=== PATIENT | female | born 1965 | race Caucasian/White ===

== ENCOUNTER 2018-02-03 12:15 | Outpatient (REF) | payer MEDICARE, MEDICAID, SELFPAY ==
[2018-02-03 22:02] LABS: Absolute Basophil Count 0.04 k/cumm (0.0-0.2); Absolute Eosinophil Count 0.21 k/cumm (0.0-0.7); Absolute Lymphocyte Count 1.36 k/cumm (1.2-3.4); Absolute Monocyte Count 0.39 k/cumm (0.11-0.7); Absolute Neutrophil Count 2.85 k/cumm (1.2-6.7); Basophils % 0.8; Eosinophils % 4.3; HGB 14.4 g/dL (12.0-15.5); Mean Corp. HGB Concentration 32.7 g/dL (32.0-36.0); Mean Corpuscular Hemoglobin 30.3 pg (27.0-33.0); Mean Corpuscular Volume 92.6 fL (80-95); Mean Platelet Volume 11.5 fL (8.0-11.0); Neutrophils % 58.9; Platelet Count 240 x1000/uL (130-400); RBC 4.75 m/cumm (4.00-5.20); RBC Distribution Width 14.6 % (11.7-14.6); White Blood Cell Count 4.85 k/cumm (4.4-10.8)
[2018-02-03 22:17] LABS: ALT 60 U/L (12-78); AST 52 U/L (15-37); Albumin 3.9 g/dL (3.4-5.0); Alkaline Phosphatase 192 U/L (46-116); Anion Gap 6.2 mmol/L (3-11); BUN 7 mg/dL (7-18); Bilirubin, Total 0.4 mg/dL (0.2-1.0); CO2 32.8 mmol/L (21.0-32.0); Calcium 9.7 mg/dL (8.5-10.1); Chloride 103 mmol/L (98-107); Cholesterol 298 mg/dL (50-200); Glucose 62 mg/dL (70-100); HDL Cholesterol 106 mg/dL (40-60); LDL CHOLESTEROL 168 mg/dL (<100); Potassium 4.2 mmol/L (3.5-5.1); Sodium 142 mmol/L (136-145); TSH (W/Ref FT4) 3.49 uIU/mL (0.358-3.74); Total Protein 7.5 g/dL (6.4-8.2); Triglyceride 119 mg/dL (30-150)
[2018-02-03 22:56] LABS: ESR 19 MM/HR (0-30)
== END 2018-02-03 12:35 ==
LOC: NCHCN 12:15
PROVIDERS: Visit Provider Family Medicine
DX: R07.89 Other chest pain (principal); M34.9 Systemic sclerosis, unspecified
CPT/HCPCS: 80053; 80061; 83721; 85652; 84443; 85025

== ENCOUNTER 2019-05-28 14:36 | Outpatient (REF) | payer MEDICARE, MEDICAID, SELFPAY ==
[2019-05-28 20:48] LABS: ALT 68 U/L (14-59); AST 48 U/L (15-37); Alkaline Phosphatase 340 U/L (46-116); Bilirubin, Direct 0.12 mg/dL (0.00-0.20); Bilirubin, Total 0.3 mg/dL (0.2-1.0); Total Protein 7.6 g/dL (6.4-8.2)
[2019-05-28 21:09] LABS: Vitamin D 25 Total 26.6 ng/ml (30-100)
== END 2019-05-28 14:56 ==
LOC: NCHCN 14:36
PROVIDERS: PCP Internal Medicine; Visit Provider Internal Medicine
DX: R94.5 Abnormal results of liver function studies (principal); E55.9 Vitamin D deficiency, unspecified
CPT/HCPCS: 80076; 82306

== ENCOUNTER 2019-06-05 14:40 | Outpatient (REF) | payer MEDICARE, MEDICAID, SELFPAY ==
[2019-06-05 21:15] LABS: Absolute Basophil Count 0.03 k/cumm (0.0-0.2); Absolute Eosinophil Count 0.15 k/cumm (0.0-0.7); Absolute Lymphocyte Count 1.35 k/cumm (1.2-3.4); Absolute Monocyte Count 0.38 k/cumm (0.11-0.7); Absolute Neutrophil Count 3.64 k/cumm (1.2-6.7); Basophils % 0.5; Eosinophils % 2.7; HCT 40.5 % (36.0-46.0); Lymphocytes % 24.3; Mean Corp. HGB Concentration 32.1 g/dL (32.0-36.0); Mean Corpuscular Hemoglobin 29.6 pg (27.0-33.0); Mean Corpuscular Volume 92.3 fL (80-95); Monocytes % 6.8; Neutrophils % 65.7; Platelet Count 278 x1000/uL (130-400); RBC 4.39 m/cumm (4.00-5.20); RBC Distribution Width 14.7 % (11.7-14.6); White Blood Cell Count 5.55 k/cumm (4.4-10.8)
[2019-06-05 21:54] LABS: ALT 60 U/L (14-59); AST 47 U/L (15-37); Albumin 3.8 g/dL (3.4-5.0); Alkaline Phosphatase 293 U/L (46-116); Bilirubin, Direct 0.13 mg/dL (0.00-0.20); Bilirubin, Total 0.5 mg/dL (0.2-1.0); Total Protein 7.2 g/dL (6.4-8.2)
[2019-06-05 22:01] LABS: GGT 234 U/L (5-55)
[2019-06-07 09:10] LABS: HBs Antibody, Quant <3.1 mIU/mL (See Note); Hepatitis B Surface Ab Negative (See Note); Hepatitis B Surface Ag Negative (Negative)
[2019-06-07 10:03] LABS: Hepatitis C Ab w Rflx HCV PCR Reactive (Negative)
[2019-06-11 15:07] LABS: ANA Interpretation Positive (Negative); ANA Titer Pattern 1:80 Speckled
[2019-06-11 15:12] LABS: HCV RNA Qualitative Undetected (Undetected)
[2019-06-11 15:14] LABS: Smooth Muscle Ab Screen Negative (Negative)
== END 2019-06-05 15:00 ==
LOC: NCHCN 14:40
PROVIDERS: PCP Internal Medicine; Visit Provider Internal Medicine
DX: R74.8 Abnormal levels of other serum enzymes (principal); R94.5 Abnormal results of liver function studies; Z11.59 Encounter for screening for other viral diseases; Z01.84 Encounter for antibody response examination; R07.89 Other chest pain; R60.9 Edema, unspecified; M75.120 Complete rotator cuff tear or rupture of unspecified shoulder, not specified as traumatic
CPT/HCPCS: 80076; 83516; 86706; 86803; 87340; 87522; 82977; 85025; 86038; 86255

== ENCOUNTER 2020-01-15 13:20 | Outpatient (REF) | payer MEDICARE, MEDICAID, SELFPAY ==
[2020-01-18 15:56] LABS: COVID-19 RT-PCR Result NEGATIVE (Negative)
== END 2020-01-15 13:40 ==
LOC: NCHCN 13:20
PROVIDERS: PCP Internal Medicine; Visit Provider Internal Medicine
DX: J06.9 Acute upper respiratory infection, unspecified (principal)
CPT/HCPCS: U0003

== ENCOUNTER 2020-02-20 22:15 | Outpatient (REF) | payer MEDICARE, MEDICAID, SELFPAY ==
[2020-02-20 22:29] LABS: ALT 55 U/L (14-59); AST 39 U/L (15-37); Alkaline Phosphatase 254 U/L (46-116); Anion Gap 8.2 mmol/L (3-11); BUN 12 mg/dL (7-18); Bilirubin, Total 0.4 mg/dL (0.2-1.0); CO2 30.8 mmol/L (21.0-32.0); CREATININE 0.76 mg/dL (0.55-1.02); Calcium 9.6 mg/dL (8.5-10.1); Chloride 100 mmol/L (98-107); Glucose 85 mg/dL (74-106); Potassium 4.2 mmol/L (3.5-5.1); Sodium 139 mmol/L (136-145); Total Protein 7.8 g/dL (6.4-8.2)
[2020-02-22 16:18] LABS: HBs Antibody, Quant <3.1 mIU/mL (See Note); Hepatitis B Surface Ab Negative (See Note)
[2020-02-25 11:41] LABS: Hep A Total Ab w Rflx IgM Negative (Negative)
== END 2020-02-20 22:35 ==
LOC: NCHCN 22:15
PROVIDERS: PCP Internal Medicine; Visit Provider Internal Medicine
DX: K74.3 Primary biliary cirrhosis (principal); Z11.59 Encounter for screening for other viral diseases
CPT/HCPCS: 80053; 86706; 86709

== ENCOUNTER 2020-07-23 21:13 | Outpatient (REF) | payer MEDICARE, MEDICAID, SELFPAY ==
[2020-07-23 22:07] LABS: ALT 80 U/L (14-59); AST 83 U/L (15-37); Albumin 3.8 g/dL (3.4-5.0); Alkaline Phosphatase 377 U/L (46-116); Anion Gap 5.4 mmol/L (3-11); BUN 8 mg/dL (7-18); Bilirubin, Total 0.4 mg/dL (0.2-1.0); CO2 32.6 mmol/L (21.0-32.0); CREATININE 0.7 mg/dL (0.55-1.02); Calcium 9.8 mg/dL (8.5-10.1); Chloride 103 mmol/L (98-107); Glucose 107 mg/dL (74-106); Potassium 4.3 mmol/L (3.5-5.1); Sodium 141 mmol/L (136-145); Total Protein 7.3 g/dL (6.4-8.2)
[2020-07-23 22:08] LABS: Abs Immature Grans 0.01 10^3/uL (0.0-0.06); Absolute Basophil Count 0.06 10^3/uL (0.0-0.2); Absolute Eosinophil Count 0.11 10^3/uL (0.0-0.7); Absolute Lymphocyte Count 1.89 10^3/uL (1.2-3.4); Absolute Monocyte Count 0.41 10^3/uL (0.1-0.8); Eosinophils % 1.8; HCT 43.5 % (36.0-46.0); HGB 13.9 g/dL (11.2-15.7); Immature Grans % 0.2; Lymphocytes % 30.1; MCH 28.1 pg (27.0-33.0); MCV 88.1 fL (80-95); MPV 11.7 fL (8.0-11.0); Monocytes % 6.5; Neutrophils % 60.4; Nucleated RBC 0 %; Platelet Count 225 10^3/uL (130-400); RBC 4.94 10^6/uL (3.93-5.22); RDW 16.9 % (11.7-14.6); RDW-SD 54.1 fL; WBC 6.28 10^3/uL (4.4-10.8)
== END 2020-07-23 21:14 | disposition home or self-care (01) ==
LOC: NCHCN 21:13
PROVIDERS: PCP Internal Medicine; Visit Provider Nurse Practitioner Family
DX: R10.32 Left lower quadrant pain (principal); I73.00 Raynaud's syndrome without gangrene
CPT/HCPCS: 80053; 85025

== ENCOUNTER 2021-03-20 16:47 | Outpatient (REF) | payer MEDICARE, MEDICAID, SELFPAY ==
[2021-03-20 21:03] LABS: HCT 39.8 % (36.0-46.0); HGB 12.3 g/dL (11.2-15.7); MCH 28.7 pg (27.0-33.0); MCHC 30.9 % (32.0-36.0); MCV 92.8 fL (80-95); MPV 12.9 fL (8.0-11.0); Platelet Count 212 10^3/uL (130-400); RBC 4.29 10^6/uL (3.93-5.22); RDW 14.9 % (11.7-14.6); RDW-SD 50.8 fL; WBC 5.51 10^3/uL (4.4-10.8)
[2021-03-20 21:52] LABS: ALT 76 U/L (14-59); AST 52 U/L (15-37); Albumin 3.7 g/dL (3.4-5.0); Alkaline Phosphatase 566 U/L (46-116); Anion Gap 8.7 mmol/L (3-11); BUN 9 mg/dL (7-18); Bilirubin, Total 0.3 mg/dL (0.2-1.0); CO2 29.3 mmol/L (21.0-32.0); CREATININE 0.7 mg/dL (0.55-1.02); Calcium 9.1 mg/dL (8.5-10.1); Chloride 104 mmol/L (98-107); Glucose 90 mg/dL (74-106); Potassium 3.7 mmol/L (3.5-5.1); Sodium 142 mmol/L (136-145); TSH (W/Ref FT4) 2.86 uIU/mL (0.36-3.74); Total Protein 7.3 g/dL (6.4-8.2)
[2021-03-24 09:21] LABS: Lyme Ab w Rflx to Lyme Confirm Negative (Negative)
== END 2021-03-20 16:48 | disposition home or self-care (01) ==
LOC: NCHCN 16:47
PROVIDERS: PCP Internal Medicine; Visit Provider Internal Medicine
DX: M35.00 Sjogren syndrome, unspecified (principal); I73.00 Raynaud's syndrome without gangrene; R53.83 Other fatigue
CPT/HCPCS: 80053; 80061; 85027; 84443; 86618

== ENCOUNTER 2022-06-07 21:10 | Outpatient (REF) | payer MEDICARE, MEDICAID, SELFPAY ==
--- OUTSIDE RECORDS SUMMARY | 2022-06-07 21:14 | XMS_ITS | CCD ---
Author Name Unknown Address [address] [place] [address] [phone] Organization Unknown Address [address] [place] [address] [id number] Care Team Providers Care Baggage And Mail Agent Name Role Phone TOREY KRAFT Attending Physician [phone] TASHIA HENDRICKS Er Physician [phone] SAMIR GODINEZ (Secondary) Physician [phone] BRADY Colón Registered Nurse [phone] Vital Signs Vital Sign Value Unit Date/Time Recent/Initial ? BMI (Body Mass Index) 18.46 kg/m^2 01/10/2022 15: 08 Initial VS Weight Measured 125 lbs 01/10/2022 15:08 Ini tial VS Height 69 in 01/10/2022 15:08 Initial VS BSA (Body Surface Area) 1.66 m^2 01/10/2022 1 5:08 Initial VS BP Systolic 102 mmHg 01/10/2022 15:08 Initial VS BP Diastolic 63 mmHg 01/10/2022 15:08 Initia l VS Respiratory Rate 16 bpm 01/10/2022 15:08 In itial VS Heart Rate 73 bpm 01/10/2022 15:08 Initial VS O2 % BldC Oximetry 99 % 01/10/2022 15:08 Initial VS Body Temperature 36.4 degrees 01/10/2022 15:08 In itial VS BP Systolic 95 mmHg 01/13/2022 07:30 Most Re cent VS BP Diastolic 59 mmHg 01/13/2022 07:30 Most R ecent VS Respiratory Rate 18 bpm 01/13/2022 07:[address] Recent VS Heart Rate 66 bpm 01/13/2022 07:30 Most Rec ent VS O2 % BldC Oximetry 99 % 01/13/2022 07:30 Most Recent VS Body Temperature 37.1 degrees 01/13/2022 07:[address] Recent VS Allergies Allergy Code Allergy Type Reaction Status TYLENOL 257404 Drug allergy LIVER ISSUES Active CODEINE 2670 Drug allergy Nausea; Vomiting Active ERYTHROMYCIN 4053 Drug allergy PLATELET ISSUES Activ e GLUTEN 0 Food allergy GI ISSUES Active LACTOSE 6211 Food allergy INTOLERANT Active NSAID 0 Drug allergy NAUSEA/VOMITING Active ASPIRIN 1191 Drug allergy PLATELET ISSUES Active Procedures Procedure Code Procedure Type Date Detachment at Right Index Fi nger, Mid, Open Approach [id number] ICD-10 PCS Excision of Right Hand, Open Approach, Diagnostic 0XBJ 0ZX ICD-10 PCS 01/10/2022 Drainage, Finger Abscess; Complicated 04252 CPT 01/12/2022 Anesthesia, Open/Surg Arthro scopic/Endoscopic Proc, Distal Radius/Distal Ulna/Wrist/Hand; NOS 32126 CPT 01/10/2022 History of Immunizations Unknown or Not Available. Problems Problem Code Start Date Resolved Date Status Sprain of right wrist, initi al encounter [id number] Active Auto-immune disorder 24004748 01/10/2022 Reso lved Arthritis 8762431 01/10/2022 Resolved Primary Sjogren's syndrome 284673488 Resolved Results BASIC METABOLIC PANEL (BMP) - Collect Date/Time: 01/11/2022 06:54 Test Name Code Test Result Test Units Test Ref Rang e GLUCOSE 2345-7 86 mg/dL L=70 H=116 BUN 3094-0 10 mg/dL L=6 H=25 CREATININE 2160-0 0.65 mg/dL L=0.51 H=0.95 SODIUM SERUM 2951-2 141 mmol/L L=136 H=145 POTASSIUM SERUM 2823-3 4.0 mmol/L L=3.4 H=5 .2 CHLORIDE SERUM 2075-0 105 mmol/L L=96 H=110 CARBON DIOXIDE (CO2) 2028-9 30 mmol/L L=22 H=34 ANION GAP 92606-2 6.3 mmol/L CALCIUM SERUM 29004-7 8.8 mg/dL L=8.2 H=10. 2 AGE 56 years eGFR (non-Afr.Amer.) 73874-3 95 mL/min eGFR (Afr-Ethiopian) 69056-4 115 mL/min BUN (UREA NITROGEN)* - Colle ct Date/Time: 01/11/2022 06:54 Test Name Code Test Result Test Units Test Ref Rang e BUN 3094-0 10 mg/dL L=6 H=25 C REACTIVE PROTEIN HIGH SENS ITIVITY* - Collect Date/Time: 01/11/2022 06:54 Test Name Code Test Result Test Units Test Ref Rang e CRP-HIGH SENS. 04075-4 4.27 mg/L L=0.00 H=3 .00 CRP-HIGH SENS 97512-9 0.43 mg/dL L=0.00 H=0. 30 C REACTIVE PROTEIN HIGH SENS ITIVITY* - Collect Date/Time: 01/10/2022 17:06 Test Name Code Test Result Test Units Test Ref Rang e CRP-HIGH SENS. 41117-3 4.68 mg/L L=0.00 H=3 .00 CRP-HIGH SENS 40153-8 0.47 mg/dL L=0.00 H=0. 30 COMPREHENSIVE METABOLIC PANE L (CMP) - Collect Date/Time: 01/10/2022 17:06 Test Name Code Test Result Test Units Test Ref Rang e GLUCOSE 2345-7 100 mg/dL L=70 H=116 BUN 3094-0 13 mg/dL L=6 H=25 CREATININE 2160-0 0.81 mg/dL L=0.51 H=0.95 SODIUM SERUM 2951-2 141 mmol/L L=136 H=145 POTASSIUM SERUM 2823-3 4.8 mmol/L L=3.4 H=5 .2 CHLORIDE SERUM 2075-0 105 mmol/L L=96 H=110 CARBON DIOXIDE (CO2) 2028-9 30 mmol/L L=22 H=34 ANION GAP 20957-5 6.4 mmol/L CALCIUM SERUM 20564-3 8.7 mg/dL L=8.2 H=10. 2 BILIRUBIN TOTAL 1975-2 0.4 mg/dL L=0.0 H=1 .3 ALK. PHOS. 6768-6 399 U/L L=46 H=116 SGOT (AST) 1920-8 50 U/L L=15 H=37 SGPT (ALT) 1742-6 59 U/L L=12 H=78 TOTAL PROTEIN 2885-2 7.7 gm/dL L=6.0 H=8.0 ALBUMIN 1751-7 3.5 gm/dL L=3.4 H=5.0 AGE 56 years eGFR (non-Afr.Amer.) 40350-4 73 mL/min eGFR (Afr-Ethiopian) 55031-4 89 mL/min CREATININE SERUM - Collect D ate/Time: 01/11/2022 06:54 Test Name Code Test Result Test Units Test Ref Rang e CREATININE 2160-0 0.65 mg/dL L=0.51 H=0.95 AGE 56 years eGFR (non-Afr.Amer.) 66096-0 95 mL/min eGFR (Afr-Ethiopian) 61766-8 115 mL/min VANCOMYCIN PEAK* - Collect D ate/Time: 01/11/2022 14:30 Test Name Code Test Result Test Units Test Ref Rang e VANCOMYCIN, PEAK 32.5 ug/mL CBC W/ DIFFERENTIAL* - Colle ct Date/Time: 01/11/2022 06:54 Test Name Code Test Result Test Units Test Ref Rang e WBC 6690-2 4.50 th/cmm L=5.00 H=10.00 NEUT % 46.5 % L=40.0 H=80.0 LYMPH % 42.2 % L=10.0 H=50.0 MONO % 04940-3 7.6 % L=2.0 H=12.0 EOS % 2.4 % L=0.0 H=8.0 BASO % 1.1 % L=0.0 H=3.0 IG % 2514-8 0.2 % L=0.0 H=1.1 NRBC % 74108-6 0.0 % L=0.0 H=0.0 NEUT abs count 751-8 2.1 th/cmm L=1.6 H=8. 4 LYMPH abs count 731-0 1.9 th/cmm L=1.5 H=4 .0 MONO abs count 742-7 0.3 th/cmm L=0.2 H=1. 0 EOS abs count 711-2 0.1 th/cmm L=0.0 H=0.5 BASO abs count 704-7 0.1 th/cmm L=0.0 H=0. 2 IG abs count 36997-8 0.0 th/cmm L=0.0 H=0.1 NRBC abs count 09803-2 0.0 mil/cmm L=0.0 H=0. 0 RBC 789-8 4.46 mil/cmm L=3.90 H=5.40 HEMOGLOBIN 718-7 13.2 gm/dL L=12.0 H=16.0 HEMATOCRIT 4544-3 40 % L=37 H=47 MCV 787-2 90 fL L=82 H=92 MCH 785-6 29.6 pg L=27.0 H=31.0 MCHC 786-4 32.8 % L=32.0 H=36.0 RDW-SD 788-0 49.8 fL L=39.0 H=49.0 PLATELET COUNT 777-3 202 th/cmm L=150 H=45 0 CBC W/ DIFFERENTIAL* - [facility] ct Date/Time: 01/10/2022 17:06 Test Name Code Test Result Test Units Test Ref Rang e WBC 6690-2 5.89 th/cmm L=5.00 H=10.00 NEUT % 60.0 % L=40.0 H=80.0 LYMPH % 30.2 % L=10.0 H=50.0 MONO % 27936-7 7.3 % L=2.0 H=12.0 EOS % 1.4 % L=0.0 H=8.0 BASO % 0.8 % L=0.0 H=3.0 IG % 2514-8 0.3 % L=0.0 H=1.1 NRBC % 15483-7 0.0 % L=0.0 H=0.0 NEUT abs count 751-8 3.5 th/cmm L=1.6 H=8. 4 LYMPH abs count 731-0 1.8 th/cmm L=1.5 H=4 .0 MONO abs count 742-7 0.4 th/cmm L=0.2 H=1. 0 EOS abs count 711-2 0.1 th/cmm L=0.0 H=0.5 BASO abs count 704-7 0.1 th/cmm L=0.0 H=0. 2 IG abs count 46640-7 0.0 th/cmm L=0.0 H=0.1 NRBC abs count 77236-0 0.0 mil/cmm L=0.0 H=0. 0 RBC 789-8 4.60 mil/cmm L=3.90 H=5.40 HEMOGLOBIN 718-7 13.4 gm/dL L=12.0 H=16.0 HEMATOCRIT 4544-3 41 % L=37 H=47 MCV 787-2 90 fL L=82 H=92 MCH 785-6 29.1 pg L=27.0 H=31.0 MCHC 786-4 32.4 % L=32.0 H=36.0 RDW-SD 788-0 50.2 fL L=39.0 H=49.0 PLATELET COUNT 777-3 206 th/cmm L=150 H=45 0 SED RATE* - Collect Date/Manish e: 01/11/2022 06:54 Test Name Code Test Result Test Units Test Ref Rang e SED. RATE 4537-7 38 mm/hr L=0 H=30 SED RATE* - Collect Date/Manish e: 01/10/2022 17:06 Test Name Code Test Result Test Units Test Ref Rang e SED. RATE 4537-7 30 mm/hr L=0 H=30 KAMI COVID RHEONIX* - Link ect Date/Time: 01/10/2022 17:11 Test Name Code Test Result Test Units Test Ref Rang e [facility]- 58964-8 INPATIENT/ED N/A SARS COV2 RNA: 71483-1 NEGATIVE N/A REFERENCE RANGE: NEGAT GRAM STAIN* - Collect Date/T [place]: 01/12/2022 16:38 Test Name Code Test Result Test Units Test Ref Rang e SOURCE- Other N/A WBC s none seen N/A PREDOMINANT ORGANISM No bacteria seen N/A GRAM STAIN* - Collect Date/T [place]: 01/12/2022 16:38 Test Name Code Test Result Test Units Test Ref Rang e SOURCE- Other N/A WBC s none seen N/A PREDOMINANT ORGANISM No bacteria seen N/A GRAM STAIN* - Collect Date/T [place]: 01/12/2022 16:38 Test Name Code Test Result Test Units Test Ref Rang e SOURCE- Other N/A WBC s none seen N/A PREDOMINANT ORGANISM No bacteria seen N/A GRAM STAIN* - Collect Date/T [place]: 01/10/2022 18:30 Test Name Code Test Result Test Units Test Ref Rang e SOURCE- Other N/A WBC s few N/A PREDOMINANT ORGANISM Gram pos cocci N/A MRSA SCREEN BY PCR - Collect Date/Time: 01/12/2022 13:07 Test Name Code Test Result Test Units Test Ref Rang e MRSA 63526-9 NEGATIVE N/A Normal: Negati ve Active Medications Medications Administered During Visit Medication Dose Units Frequency Route Date/Time of Last Dose VANCOMYCIN IVPB PREMIX: 1.25GM/250ML 1.25 GM X1 01/10/2022 18:1 0 CeFAZolin IVPB FROZEN PREMIX : 2GM/100ML 2 GM Q8H 01/13/2022 08:3 4 OxyCODONE TABLET no apap added: 5mg 5 MG X1 PO 01/10/2022 18:14 OxyCODONE TABLET no apap added: 5mg 5 MG PRN Q4H PO 01/11/2022 09:39 HYDROmorphone INJ SYRINGE: 0.5MG/0.5ML 0.3 MG PRN Q4H IVP 01/11/2022 09:3 2 ONDANSETRON INJ SDV: 4MG/2ML 4 MG PRN Q4H 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 01/12/2022 19:42 DOCUSATE SODIUM CAPSULE: 100MG 100 MG BID PO 01/13/2022 08:33 VANCOMYCIN DOSE AND LEVELS P ER PHARMACY 1 EA DAILY IV 01/12/2022 12:5 9 VANCOMYCIN IVPB PREMIX: 1.5GM/300ML 1.5 GM X1 01/11/2022 11:07 VANCOMYCIN LEVEL REMINDER TO NURSING 1 --- X1 --- 01/11/2022 16:1 4 KETOROLAC INJ SDV: 30MG/1ML 15 MG Q6H IV P 01/12/2022 06:27 VANCOMYCIN IVPB:1GM/250ML 1 GM Q12H 01/12/2022 12:01 LACTATED RINGERS 1000ML 100 ML X1 01/11/2022 20:24 KETOROLAC INJ SDV: 30MG/1ML 15 MG Q6H IV P 01/13/2022 06:16 MIDAZOLAM INJ SDV: 2MG/2ML 2 MG X1 IVP 01/12/2022 15:14 DEXTROSE 5% AND NACL 0.45% 1000ML 1 EA CONT 01/13/2022 08:43 Encounters Encounter Diagnosis Diagnosis Code Start Date Cutaneous abscess of right hand J78473 01/10/2022 Social History Smoking Status Code Start Date End Date Never smoker 009540931 Patient Decision Aids Unknown or Not Available. Discharge Instructions You were admitted to [facility] on 01/10/2022 18:29 with a principal diagnosis of Cutaneous abscess of right hand You had the following procedures done:Detachment at Right Index Finger, Mid, Open ApproachExcision of Right Hand, Open Approach, DiagnosticDrainage, Finger Abscess; ComplicatedAnesthesia, Open/Surg Arthroscopic/Endoscopic Proc, Distal Radius/Distal Ulna/Wrist/Hand; NOS You had the following tests done:GRAM STAIN*GRAM STAIN*GRAM STAIN*MRSA SCREEN BY PCRVANCOMYCIN PEAK*BASIC METABOLIC PANEL (BMP)BUN (UREA NITROGEN)*C REACTIVE PROTEIN HIGH SENSITIVITY*CBC W/ DIFFERENTIAL*CREATININE SERUMSED RATE*GRAM STAIN*KAMI COVID RHEONIX*C REACTIVE PROTEIN HIGH SENSITIVITY*CBC W/ DIFFERENTIAL*COMPREHENSIVE METABOLIC PANEL (CMP)SED RATE* You were discharged from [facility] on 01/13/2022 11:50 Should you have any questions prior to discharge, please contact a member of your healthcare team. If you have left the hospital and have any questions, please contact your primary care physician. Chief Complaint and Reason For Visit Chief Complaint Date of Onset RIGHT INDEX FINGER INFECTION Function Status Unknown or Not Available. Plan of Care Unknown or Not Available. Referral/Transition of Care Unknown or Not Available.
--- OUTSIDE RECORDS SUMMARY | 2022-06-07 21:14 | XMS_ITS | CCD ---
Author Name Unknown Address [address] [place] [address] [phone] Organization Unknown Address [address] [place], [place] [id number] Care Team Providers Care Librarian Special Collections Name Role Phone TOREY KRAFT Attending Physician [phone] Vital Signs Unknown or Not Available. Allergies Allergy Code Allergy Type Reaction Status TYLENOL 20230410 Drug allergy LIVER ISSUES Active CODEINE 2670 Drug allergy Nausea; Vomiting Active ERYTHROMYCIN 4053 Drug allergy PLATELET ISSUES Activ e GLUTEN 0 Food allergy GI ISSUES Active LACTOSE 6211 Food allergy INTOLERANT Active NSAID 0 Drug allergy NAUSEA/VOMITING Active ASPIRIN 1191 Drug allergy PLATELET ISSUES Active Procedures Unknown or Not Available. History of Immunizations Unknown or Not Available. Problems Problem Code Start Date Resolved Date Status Sprain of right wrist, initi al encounter 65765833272529859 Active Results Unknown or Not Available. Active Medications Unknown or Not Available. Medications Administered During Visit Unknown or Not Available. Encounters Encounter Diagnosis Diagnosis Code Start Date Canceled operative procedure 20756958 09/2021 Social History Smoking Status Code Start Date End Date Never smoker 450584138 Patient Decision Aids Unknown or Not Available. Discharge Instructions You were admitted to [facility] on 01/14/2022 00:24 with a principal diagnosis of Procedure and treatment not carried out, unspecified reason You were discharged from [facility] on 01/14/2022 00:29 Should you have any questions prior to discharge, please contact a member of your healthcare team. If you have left the hospital and have any questions, please contact your primary care physician. Chief Complaint and Reason For Visit Unknown or Not Available. Function Status Unknown or Not Available. Plan of Care Unknown or Not Available. Referral/Transition of Care Unknown or Not Available.
--- OUTSIDE RECORDS SUMMARY | 2022-06-07 21:14 | XMS_ITS | CCD ---
Author Name Unknown Address [address] [place] [address] [id number] Organization Unknown Address [address] [place], [place] [id number] Care Team Providers Care Gallery Director Name Role Phone MAYRA SANTANA Attending Physician [phone] MAYRA SANTANA Rounding (Secondary) Physician [phone] Vital Signs Unknown or Not Available. Allergies [...] Sprain of right wrist, initi al encounter 64599301784264199 Active Results Unknown or Not Available. Active Medications Unknown or Not Available. Medications Administered During Visit Unknown or Not Available. Encounters Encounter Diagnosis Diagnosis Code Start Date Amputated finger 350174614 01/20/2022 Social History Smoking Status Code Start Date End Date Never smoker 961135718 Patient Decision Aids Unknown or Not Available. Discharge Instructions You were admitted to [facility] on 01/20/2022 07:25 with a principal diagnosis of Acquired absence of left finger(s) You were discharged from [facility] on 01/20/2022 00:00 Should you have any questions prior to [...]
--- OUTSIDE RECORDS SUMMARY | 2022-06-07 21:14 | XMS_ITS | CCD ---
Author Name Unknown Address [address] [place] [address] [phone] Organization Unknown Address [address] [place], [place] [phone] Care Team Providers Care Wooling Machine Operator Name Role Phone SAMIR GODINEZ Attending Physician [phone] Vital Signs Unknown or Not Available. Allergies Allergy Code Allergy Type Reaction Status TYLENOL 20230410 Drug allergy LIVER ISSUES Active CODEINE 267 Drug allergy Nausea; Vomiting Active ERYTHROMYCIN 4053 Drug allergy PLATELET ISSUES Activ e LACTOSE 6211 Food allergy INTOLERANT Active ASPIRIN 1191 Drug allergy PLATELET ISSUES Active Procedures Unknown or Not Available. History of Immunizations Unknown or Not Available. Problems Problem Code Start Date Resolved Date Status Sprain of right wrist, initi al encounter 60694467402485182 Active Auto-immune disorder 10026432 01/10/2022 Reso lved Arthritis 8026748 01/10/2022 Resolved Primary Sjogren's syndrome 679521803 2 Resolved Results Unknown or Not Available. Active Medications Unknown or Not Available. Medications Administered During Visit Unknown or Not Available. Encounters Encounter Diagnosis Diagnosis Code Start Date Chronic osteomyelitis with draining sinus, right hand K73216 01/10/2022 Social History Smoking Status Code Start Date End Date Never smoker 305813881 Patient Decision Aids Unknown or Not Available. Discharge Instructions You were admitted to [facility] on 01/10/2022 14:44 with a principal diagnosis of Chronic osteomyelitis with draining sinus, right hand You were discharged from [facility] on 01/10/2022 18:29 Should you have any questions prior to [...]
--- OUTSIDE RECORDS SUMMARY | 2022-06-07 21:15 | XMS_ITS | CCD ---
Author Name Unknown Address [address] [place] [address] [phone] Organization Unknown Address [address] [place], [place] [id number] Care Team Providers Care Med Surg Rn Name Role Phone TOREY KRAFT Attending Physician [phone] TOREY KRAFT Rounding (Secondary) Physic ana [phone] Vital Signs Unknown or Not Available. Allergies [...] Sprain of right wrist, initi al encounter 76242210192690995 Active Results CLOSTRIDIUM DIFFICILE BY PCR * - Collect Date/Time: 03/01/2022 13:00 Test Name Code Test Result Test Units Test Ref Rang e Consistency = LOOSE/SOFT N/A C. DIFFICILE DNA 57409-4 NEGATIVE N/A Normal: Negative Active Medications Unknown or Not Available. Medications Administered During Visit Unknown or Not Available. Encounters Encounter Diagnosis Diagnosis Code Start Date Diarrhea 36669831 03/01/2022 Social History Smoking Status Code Start Date End Date Never smoker 371819679 Patient Decision Aids Unknown or Not Available. Discharge Instructions You were admitted to [facility] on 03/01/2022 00:00 with a principal diagnosis of Diarrhea, unspecified You had the following tests done:CLOSTRIDIUM DIFFICILE BY PCR* You were discharged from [facility] on 03/01/2022 00:00 Should you have any questions prior [...]
--- OUTSIDE RECORDS SUMMARY | 2022-06-07 21:15 | XMS_ITS | CCD ---
Author Name Unknown Address [address] [place] [address] [phone] Organization Unknown Address [address] [place], [place] [phone] Care Team Providers Care Lab Aide Name Role Phone MAYRA SANTANA Attending Physician [phone] MAYRA SANTANA Rounding (Secondary) Physician [phone] Vital Signs Unknown or Not Available. Allergies [...] Sprain of right wrist, initi al encounter 50711915569651817 Active Results Unknown or Not Available. Active Medications Unknown or Not Available. Medications Administered During Visit Unknown or Not Available. Encounters Encounter Diagnosis Diagnosis Code Start Date Canceled operative procedure 00458503 Social History Smoking Status Code Start Date End Date Never smoker 482440105 Patient Decision Aids Unknown or Not Available. Discharge Instructions You were admitted to [facility] on 01/29/2022 10:21 with a principal diagnosis of Procedure and treatment not carried out, unspecified reason You were discharged from [facility] on 01/29/2022 00:00 Should you have any questions prior [...]
--- OUTSIDE RECORDS SUMMARY | 2022-06-07 21:15 | XMS_ITS | CCD ---
Author Name Unknown Address [address] [place] [address] [id number] Organization Unknown Address [address] [place], [place] [phone] Care Team Providers Care Junior Financial Analyst Name Role Phone TOREY KRAFT Attending Physician [phone] TOREY KRAFT Rounding (Secondary) Physic ana [phone] Vital Signs Unknown or Not Available. Allergies [...] Sprain of right wrist, initi al encounter 05305100830535503 Active Auto-immune disorder 46895271 01/10/2022 Reso lved Arthritis 5581637 01/10/2022 Resolved Primary Sjogren's syndrome 611826915 Resolved Results Unknown or Not Available. Active Medications Unknown or Not Available. Medications Administered During Visit Unknown or Not Available. Encounters Encounter Diagnosis Diagnosis Code Start Date Abscess of right hand [id number] 01/11/20 Social History Smoking Status Code Start Date End Date Never smoker 177935110 Patient Decision Aids Unknown or Not Available. Discharge Instructions You were admitted to [facility] on 01/10/2022 00:45 with a principal diagnosis of Cutaneous abscess of right hand You were discharged from [facility] on 01/13/2022 00:46 Should you have any questions prior to [...]
--- OUTSIDE RECORDS SUMMARY | 2022-06-07 21:15 | XMS_ITS | CCD ---
Author Name Unknown Address [address] [place] [address] [phone] Organization Unknown Address [address] [place], [place] [phone] Care Team Providers Care Cinder Pit Crane Operator Name Role Phone TOREY KRAFT Attending Physician [phone] TOREY KRAFT Rounding (Secondary) Physic ana [phone] Vital Signs Unknown or Not Available. Allergies [...] Sprain of right wrist, initi al encounter 88144056627813679 Active Results Unknown or Not Available. Active Medications Unknown or Not Available. Medications Administered During Visit Unknown or Not Available. Encounters Encounter Diagnosis Diagnosis Code Start Date Amputated finger 152020823 04/12/2022 Social History Smoking Status Code Start Date End Date Never smoker 892476116 Patient Decision Aids Unknown or Not Available. Discharge Instructions You were admitted to [facility] on 04/12/2022 00:00 with a principal diagnosis of Acquired absence of right finger(s) You were discharged from [facility] on 04/12/2022 00:00 Should you have any questions prior [...]
--- OUTSIDE RECORDS SUMMARY | 2022-06-07 21:16 | XMS_ITS | CCD ---
Author Name Unknown Address [address] [place] [address] [phone] Organization Unknown Address [address] [place], [place] [phone] Care Team Providers Care Medical Care Manager Name Role Phone TASHIA HENDRICKS Attending Physician [phone] VIOLETA SARGENT Er Physician [phone] JOHN Colón Registered Nurse [phone] Vital Signs Vital Sign Value Unit Date/Time Recent/Initial ? BMI (Body Mass Index) 18.46 kg/m^2 05/06/2022 13: 12 Initial VS Weight Measured 125 lbs 05/06/2022 13:12 Ini tial VS Height 69 in 05/06/2022 13:12 Initial VS BSA (Body Surface Area) 1.66 m^2 05/06/2022 1 3:12 Initial VS BP Systolic 106 mmHg 05/06/2022 13:12 Initial VS BP Diastolic 68 mmHg 05/06/2022 13:12 Initia l VS Respiratory Rate 16 bpm 05/06/2022 13:12 In itial VS Heart Rate 78 bpm 05/06/2022 13:12 Initial VS O2 % BldC Oximetry 98 % 05/06/2022 13:12 Initial VS Body Temperature 36.7 degrees 05/06/2022 13:12 In itial VS Allergies Allergy Code Allergy Type Reaction [...] Sprain of right wrist, initi al encounter 85846662491034277 Active Results Unknown or Not Available. Active Medications Unknown or Not Available. Medications Administered During Visit Unknown or Not Available. Encounters Encounter Diagnosis Diagnosis Code Start Date Unspecified sprain of right wrist, initial encou nter [id number] 05/06/2022 Social History Smoking Status Code Start Date End Date Never smoker 865570971 Patient Decision Aids Unknown or Not Available. Discharge Instructions You were admitted to [facility] on 05/06/2022 12:40 with a principal diagnosis of Unspecified sprain of right wrist, initial encounter You were discharged from [facility] on 05/06/2022 14:06 Should you have any questions prior to discharge, please contact a member of your healthcare team. If you have left the hospital and have any questions, please contact your primary care physician. Chief Complaint and Reason For Visit Chief Complaint Date of Onset RIGHT WRIST INJURY Function Status Unknown or Not Available. Plan of Care Unknown or Not Available. Referral/Transition of Care Unknown or Not Available.
--- OUTSIDE RECORDS SUMMARY | 2022-06-07 21:16 | XMS_ITS | CCD ---
Author Name Unknown Address [address] [place] [address] [id number] Organization Unknown Address [address] [place] [address] [id number] Care Team Providers Care Construction Analyst Name Role Phone KOBY BARAJAS Attending Physician [phone] KOBY BARAJAS Er Physician 0 [phone] SHIRLEY BLAND (Secondary) Physician [phone] YVON Oden Registered Nurse [phone] Vital Signs Vital Sign Value Unit Date/Time Recent/Initial ? BMI (Body Mass Index) 19.49 kg/m^2 03/30/2021 20: 59 Initial VS Weight Measured 132 lbs 03/30/2021 20:59 Ini tial VS Height 69 in 03/30/2021 20:59 Initial VS BSA (Body Surface Area) 1.71 m^2 03/30/2021 2 0:59 Initial VS BP Systolic 99 mmHg 03/30/2021 20:59 Initial VS BP Diastolic 64 mmHg 03/30/2021 20:59 Initia l VS Respiratory Rate 16 bpm 03/30/2021 20:59 In itial VS Heart Rate 87 bpm 03/30/2021 20:59 Initial VS O2 % BldC Oximetry 100 % 03/30/2021 20:59 Initial VS Body Temperature 36.7 degrees 03/30/2021 20:59 In itial VS Allergies Allergy Code Allergy [...] Sprain of right wrist, initi al encounter 17315125478370991 Active Auto-immune disorder [id number] 01/10/2022 Reso lved Arthritis 1394270 01/10/2022 Resolved Primary Sjogren's syndrome [id number] 2 Resolved Results Unknown or Not Available. Active Medications Unknown or Not Available. Medications Administered During Visit Medication Dose Units Frequency Route Date/Time of Last Dose KETOROLAC INJ SDV: 30MG/1ML 30 MG X1 IM 03/30/2021 21:25 OxyCODONE TABLET no apap added: 5mg 5 MG X1 PO 03/30/2021 21:59 Encounters Encounter Diagnosis Diagnosis Code Start Date Unspecified sprain of left wrist, initial encoun ter [id number] 03/30/2021 Social History Smoking Status Code Start Date End Date Never smoker [id number] Patient Decision Aids Unknown or Not Available. Discharge Instructions You were admitted to [facility] on 03/30/2021 20:48 with a principal diagnosis of Unspecified sprain of left wrist, initial encounter You were discharged from [facility] on 03/30/2021 22:31 Should you have any questions prior to discharge, please contact a member of your healthcare team. If you have left the hospital and have any questions, please contact your primary care physician. Chief Complaint and Reason For Visit Chief Complaint Date of Onset LEFT WRIST INJURY Function Status Unknown or Not Available. Plan of Care Unknown or Not Available. Referral/Transition of Care Unknown or Not Available.
--- OUTSIDE RECORDS SUMMARY | 2022-06-07 21:16 | XMS_ITS | CCD ---
Author Name Unknown Address [address] [place] [address] [id number] Organization Unknown Address [address] [place] [address] [id number] Care Team Providers Care Moth Exterminator Name Role Phone TOREY KRAFT Attending Physician [phone] Vital Signs Unknown or Not Available. Allergies [...] Sprain of right wrist, initi al encounter [id number] Active Results CLOSTRIDIUM DIFFICILE BY PCR * - Collect Date/Time: 04/12/2022 10:54 Test Name Code Test Result Test Units Test Ref Rang e Consistency = 03406-3 LOOSE/SOFT N/A C. DIFFICILE DNA 29596-7 NEGATIVE N/A Normal: Negative Active Medications Unknown or Not Available. Medications Administered During Visit Unknown or Not Available. Encounters Encounter Diagnosis Diagnosis Code Start Date Diarrhea, unspecified R197 04/12/2022 Social History Smoking Status Code Start Date End Date Never smoker [id number] Patient Decision Aids Unknown or Not Available. Discharge Instructions You were admitted to [facility] on 04/12/2022 10:44 with a principal diagnosis of Diarrhea, unspecified You had the following tests done:CLOSTRIDIUM DIFFICILE BY PCR* You were discharged from [facility] on 04/12/2022 10:44 Should you have any questions prior to [...]
--- OUTSIDE RECORDS SUMMARY | 2022-06-07 21:16 | XMS_ITS | CCD ---
Author Name Unknown Address [address] [place] [address] [id number] Organization Unknown Address [address], [place] [id number] Care Team Providers Care Tape Editor Name Role Phone LEIDY POWELL Attending Physician [phone] Vital Signs Unknown or Not Available. Allergies [...] Sprain of right wrist, initi al encounter [id number] Active Auto-immune disorder 01980253 01/10/2022 Reso lved Arthritis 9751484 01/10/2022 Resolved Primary Sjogren's syndrome 184759377 Resolved Results Unknown or Not Available. Active Medications Unknown or Not Available. Medications Administered During Visit Unknown or Not Available. Encounters Encounter Diagnosis Diagnosis Code Start Date Left lower quadrant pain R1032 021 Social History Smoking Status Code Start Date End Date Never smoker [id number] Patient Decision Aids Unknown or Not Available. Discharge Instructions You were admitted to [facility] 01 on 07/25/2020 20:30 with a principal diagnosis of Left lower quadrant pain You were discharged from [facility] 01 on 07/25/2020 20:30 Should you have any questions prior to [...]
[2022-06-07 21:49] LABS: Abs Immature Grans 0.02 10^3/uL (0.0-0.06); Absolute Basophil Count 0.06 10^3/uL (0.0-0.2); Absolute Eosinophil Count 0.08 10^3/uL (0.0-0.7); Absolute Lymphocyte Count 1.59 10^3/uL (1.2-3.4); Absolute Monocyte Count 0.43 10^3/uL (0.1-0.8); Absolute Neutrophil Count 3.61 10^3/uL (1.2-6.7); Eosinophils % 1.4; HCT 43.3 % (36.0-46.0); HGB 14.1 g/dL (11.2-15.7); Immature Grans % 0.3; Lymphocytes % 27.5; MCH 29.2 pg (27.0-33.0); MCHC 32.6 % (32.0-36.0); MCV 90 fL (80-95); MPV 12.1 fL (8.0-11.0); Monocytes % 7.4; Neutrophils % 62.4; Platelet Count 236 10^3/uL (130-400); RBC 4.83 10^6/uL (3.93-5.22); RDW-SD 49.2 fL; WBC 5.79 10^3/uL (4.4-10.8)
[2022-06-07 22:28] LABS: ALT 149 U/L (14-59); AST 128 U/L (15-37); Albumin 3.6 g/dL (3.4-5.0); Alkaline Phosphatase 717 U/L (46-116); Anion Gap 8.9 mmol/L (3-11); BUN 5 mg/dL (7-18); Bilirubin, Total 0.6 mg/dL (0.2-1.0); CO2 31.1 mmol/L (21.0-32.0); CREATININE 0.8 mg/dL (0.55-1.02); Calcium 9.5 mg/dL (8.5-10.1); Chloride 104 mmol/L (98-107); Estimated GFR 86.42 (mL/min/1.73m2); Glucose 94 mg/dL (74-106); Potassium 4.2 mmol/L (3.5-5.1); Sodium 144 mmol/L (136-145); TSH (W/Ref FT4) 2.39 uIU/mL (0.36-3.74); Total Protein 7.4 g/dL (6.4-8.2)
[2022-06-09 11:07] LABS: Lyme Ab w Rflx to Lyme Confirm Negative (Negative)
== END 2022-06-07 21:11 | disposition home or self-care (01) ==
LOC: NCHCN 21:10
PROVIDERS: PCP Internal Medicine; Visit Provider Internal Medicine
DX: R53.83 Other fatigue (principal)
CPT/HCPCS: 80053; 84443; 85025; 86618

== ENCOUNTER 2023-04-21 17:25 | Outpatient (REF) | payer MEDICARE, MEDICAID, SELFPAY ==
[2023-04-21 21:18] LABS: HCT 44.5 % (36.0-46.0); HGB 14.3 g/dL (11.2-15.7); MCH 27.6 pg (27.0-33.0); MCHC 32.1 % (32.0-36.0); MCV 86 fL (80-95); MPV 11.2 fL (8.0-11.0); Platelet Count 256 10^3/uL (130-400); RBC 5.18 10^6/uL (3.93-5.22); RDW 16.3 % (11.7-14.6); RDW-SD 50.6 fL; WBC 6.21 10^3/uL (4.4-10.8)
[2023-04-21 21:33] LABS: ALT 78 U/L (14-59); AST 56 U/L (15-37); Albumin 3.7 g/dL (3.4-5.0); Alkaline Phosphatase 559 U/L (46-116); Anion Gap 7.8 mmol/L (3-11); BUN 9 mg/dL (7-18); Bilirubin, Total 0.5 mg/dL (0.2-1.0); CO2 31.2 mmol/L (21.0-32.0); CREATININE 0.8 mg/dL (0.55-1.02); Calcium 9.6 mg/dL (8.5-10.1); Calculated LDL 206 mg/dL (<100); Chloride 104 mmol/L (98-107); Cholesterol 386 mg/dL (<200); Estimated GFR 85.89 (mL/min/1.73m2); Glucose 98 mg/dL (74-106); HDL Cholesterol 144 mg/dL (40-60); Potassium 3.9 mmol/L (3.5-5.1); Sodium 143 mmol/L (136-145); Total Protein 7.8 g/dL (6.4-8.2); Triglyceride 180 mg/dL (<150)
== END 2023-04-21 17:26 | disposition home or self-care (01) ==
LOC: NCHCN 17:25
PROVIDERS: PCP Internal Medicine; Visit Provider Internal Medicine
DX: E78.5 Hyperlipidemia, unspecified (principal); K74.3 Primary biliary cirrhosis
CPT/HCPCS: 80053; 80061; 85027

== ENCOUNTER 2023-06-27 16:14 | Outpatient (REF) | payer MEDICARE, MEDICAID, SELFPAY ==
--- NOTE | 2023-06-27 13:47 | PAPFT_PTH ---
PATIENT: Jorge Bartlett LOC: [facility]#:[id number] AGE/SX: 58/F ROOM: RE06/27/[address]: Keila Wilkinson : 1965 BED: DIS: 06/27/2023 SPEC #: [id number] RECD: 06/28/23 11:44 STATUS: BRADY LUX #: [id number] JAZMINE: 06/27/23 13:[address]: Keila Wilkinson DEPT: [facility] Cytology RECD BY: Tracy Danielson Tissues: 1 - CX/ENDOCX FOR PAP SMEARS Procedures: PAP THIN PREP/[facility] Screening HPV DNA PROBE Comments: [id number]
== END 2023-06-27 16:15 | disposition home or self-care (01) ==
LOC: NCHCN 16:14
PROVIDERS: PCP Internal Medicine; Visit Provider Internal Medicine
DX: Z11.51 Encounter for screening for human papillomavirus (HPV) (principal); Z01.419 Encounter for gynecological examination (general) (routine) without abnormal findings
CPT/HCPCS: 88142; 87624

== ENCOUNTER 2023-08-02 15:22 | Outpatient (REF) | payer MEDICARE, MEDICAID, SELFPAY ==
[2023-08-04 11:00] LABS: Lyme Ab w Rflx to Lyme Confirm Negative (Negative)
[2023-08-05 13:25] LABS: Anaplasma phagocytophilum Negative (Negative); B. miyamotoi PCR Negative (Negative); Babesia divergens/MO-1 Negative (Negative); Babesia duncani Negative (Negative); Babesia microti Negative (Negative); Ehrlichia chaffeensis Negative (Negative); Ehrlichia ewingii/canis Negative (Negative); Ehrlichia muris eauclairensis Negative (Negative)
== END 2023-08-02 15:23 | disposition home or self-care (01) ==
LOC: NCHCN 15:22
PROVIDERS: PCP Internal Medicine; Visit Provider Internal Medicine
DX: R53.83 Other fatigue (principal); Z11.8 Encounter for screening for other infectious and parasitic diseases
CPT/HCPCS: 87798; 86618

== ENCOUNTER 2023-12-07 11:06 | Outpatient (REF) | payer MEDICARE, MEDICAID, SELFPAY ==
[2023-12-07 17:36] LABS: ALT 112 U/L (14-59); AST 101 U/L (15-37); Albumin 3.6 g/dL (3.4-5.0); Alkaline Phosphatase 763 U/L (46-116); Anion Gap 7.2 mmol/L (3-11); BUN 9 mg/dL (7-18); Bilirubin, Total 0.59 mg/dL (0.2-1.0); CO2 29.8 mmol/L (21.0-32.0); CREATININE 0.8 mg/dL (0.55-1.02); Calcium 9.6 mg/dL (8.5-10.1); Chloride 104 mmol/L (98-107); Cholesterol 371 mg/dL (<200); Estimated GFR 85.89 (mL/min/1.73m2); Glucose 83 mg/dL (74-106); Sodium 141 mmol/L (136-145); Total Protein 7.8 g/dL (6.4-8.2); Triglyceride 28 mg/dL (<150)
[2023-12-07 17:38] LABS: Calculated LDL 203 mg/dL (<100); HDL Cholesterol 163 mg/dL (40-60)
== END 2023-12-07 11:07 | disposition home or self-care (01) ==
LOC: NCHCN 11:06
PROVIDERS: PCP Internal Medicine; Visit Provider Internal Medicine
DX: E78.5 Hyperlipidemia, unspecified (principal)
CPT/HCPCS: 80053; 80061

== ENCOUNTER 2024-07-25 14:23 | Outpatient (REF) | payer MEDICARE, MEDICAID, SELFPAY ==
[2024-07-25 15:22] LABS: ALT 104 U/L (14-59); AST 76 U/L (15-37); Albumin 3.8 g/dL (3.4-5.0); Alkaline Phosphatase 694 U/L (46-116); Anion Gap 6.1 mmol/L (3-11); BUN 6 mg/dL (7-18); Bilirubin, Total 0.4 mg/dL (0.2-1.0); CO2 31.9 mmol/L (21.0-32.0); CREATININE 0.8 mg/dL (0.55-1.02); Calcium 9.6 mg/dL (8.5-10.1); Chloride 102 mmol/L (98-107); Estimated GFR 85.35 (mL/min/1.73m2); Glucose 76 mg/dL (74-106); Potassium 4.1 mmol/L (3.5-5.1); Sodium 140 mmol/L (136-145); Total Protein 8.4 g/dL (6.4-8.2)
[2024-07-25 15:27] LABS: HCT 43.6 % (36.0-46.0); HGB 13.3 g/dL (11.2-15.7); MCH 24.1 pg (27.0-33.0); MCHC 30.5 % (32.0-36.0); MCV 79 fL (80-95); MPV 10.7 fL (8.0-11.0); Platelet Count 315 10^3/uL (130-400); RBC 5.52 10^6/uL (3.93-5.22); RDW 17.2 % (11.7-14.6); RDW-SD 48.9 fL; WBC 5.97 10^3/uL (4.4-10.8)
[2024-07-25 17:28] LABS: Iron 30 ug/dL (50-170); Total Iron Binding Capacity 443 ug/dL (250-450); Transferrin Sat 7 % (15-50)
[2024-07-25 18:04] LABS: Ferritin 16 ng/mL (8-252)
[2024-07-26 10:45] LABS: Lyme Ab w Rflx to Lyme Confirm Negative (Negative)
[2024-07-28 11:58] LABS: Anaplasma phagocytophilum Negative (Negative); B. miyamotoi PCR Negative (Negative); Babesia divergens/MO-1 Negative (Negative); Babesia duncani Negative (Negative); Babesia microti Negative (Negative); Ehrlichia chaffeensis Negative (Negative); Ehrlichia ewingii/canis Negative (Negative); Ehrlichia muris eauclairensis Negative (Negative)
== END 2024-07-25 14:24 | disposition home or self-care (01) ==
LOC: NCHCN 14:23
PROVIDERS: PCP Internal Medicine; Visit Provider Internal Medicine
DX: R53.83 Other fatigue (principal); D64.9 Anemia, unspecified
CPT/HCPCS: 80053; 85027; 87798; 82728; 83540; 83550; 86618

== ENCOUNTER 2024-08-09 14:22 | Outpatient (REF) | payer MEDICARE, MEDICAID, SELFPAY ==
[2024-08-09 15:35] LABS: Vitamin D 25 Total 74 ng/mL (30-100)
== END 2024-08-09 14:23 | disposition home or self-care (01) ==
LOC: NCHCN 14:22
PROVIDERS: PCP Internal Medicine; Visit Provider Internal Medicine
DX: M81.0 Age-related osteoporosis without current pathological fracture (principal)
CPT/HCPCS: 82306